=== PATIENT | male | born 1995 | race African-American/Black ===

== ENCOUNTER 2018-01-30 10:56 | Emergency (ER) | payer OTHER ==
[~2018-01-30] VITALS: Ht 172.7 cm; Wt 71.3 kg
[~2018-01-30 10:56] MED LIST: ATARAX,VISTARIL50 MG PO; PREDNISONE20 MG PO
[2018-01-30] MEDS ORDERED: CLARITIN10 M3 PO (13:22)
[2018-01-30] MEDS ORDERED: FLONASE16 G1 BOTH NARES (13:22)
[2018-01-30] MEDS ORDERED: MOTRIN600 MG PO (13:22)
[2018-01-30 13:57] VITALS: BP 132/65
== END 2018-01-30 14:00 | disposition home or self-care (01) ==
LOC: EME 10:56
DX: R04.0 Epistaxis (principal); J30.9 Allergic rhinitis, unspecified
CPT/HCPCS: 99281; 99284